=== PATIENT | female | born 1960 | race Caucasian/White ===

== ENCOUNTER 2017-06-21 08:05 | Outpatient (CLI) | payer BC | END 2017-06-21 08:06 | disposition home or self-care (01) | LOC: BICMAMMO 08:05 | PROVIDERS: ATTEND Family Medicine | DX: Z12.31 Encounter for screening mammogram for malignant neoplasm of breast (principal); Z80.3 Family history of malignant neoplasm of breast | CPT/HCPCS: 77063; 77067 ==

== ENCOUNTER 2018-06-29 07:50 | Outpatient (CLI) | payer BC ==
--- NOTE | 2018-06-29 08:49 | BD ---
DEXA BONE SCAN: HISTORY: Age-related osteoporosis. FINDINGS: DEXA bone scan is performed on a Hologic bone mineral density unit. Comparison is made to previous e xam from 12/15/2015. Lumbar Spine: BMD (g/cm2) L1 0.90 T-Score: -0.9 Z-Score: 0.2 L2 0.90 T-Score: -1.1 Z-Score: 0.1 L3 0.94 T-Score: -1.3 Z-Score: -0.1 L4 0.96 T-Score: -0.9 Z-Score: 0.4 L1-L4 0.93 T-Score: -1.1 Z-Score: 0.1 Left Hip: Femoral Neck: 0.76 T-Score: -0.8 Z-Score: 0.3 Total Femur: 0.97 T-Score: 0.3 Z-Score: 1.0 IMPRESSION: Findings compatible with normal bone mineral density. No significant increased risk of osteoporotic fracture is seen. POS: OFF
--- NOTE | 2018-06-29 09:44 | MMO ---
Bilateral MAMMO Bilat Screen [facility]. CLINICAL HISTORY: Patient is 58 years old and is seen for screening. The patient has the following family history of breast cancer: maternal grandmother and maternal aunt. The patient has no personal history of cancer. The patient has a history of left Excisional Biopsy in July, - benign. VIEWS: The views performed were: bilateral craniocaudal with tomosynthesis and bilateral mediolateral oblique with tomosynthesis. FILMS COMPARED: The present examination has been compared to prior imaging studies performed at [facility] on 06/21/2017, and at [facility] on 09/21/2012, 11/01/2013, 11/10/2014 and 12/15/2015. MAMMOGRAM FINDINGS: The breasts are heterogeneously dense, which could obscure a lesion on mammography. Benign calcifications are noted bilaterally. There are no suspicious masses, suspicious calcifications, or new areas of architectural distortion. IMPRESSION: THERE IS NO MAMMOGRAPHIC EVIDENCE OF MALIGNANCY. A ROUTINE FOLLOW-UP MAMMOGRAM IN 1 YEAR IS RECOMMENDED. THE RESULTS OF THIS EXAM WERE SENT TO THE PATIENT. ACR BI-RADS Category 2 - Benign finding MAMMOGRAPHY NOTE: 1. A negative mammogram report should not delay a biopsy if a dominant of clinically suspicious mass is present. 2. Approximately 10% to 15% of breast cancers are not detected by mammography. 3. Adenosis and dense breasts may obscure an underlying neoplasm.
== END 2018-06-29 07:51 | disposition home or self-care (01) ==
LOC: BICMAMMO 07:50
PROVIDERS: ATTEND Family Medicine
DX: Z12.31 Encounter for screening mammogram for malignant neoplasm of breast (principal); Z13.820 Encounter for screening for osteoporosis; Z80.3 Family history of malignant neoplasm of breast
CPT/HCPCS: 77063; 77067; 77080

== ENCOUNTER 2021-01-27 08:26 | Outpatient (CLI) | payer BC | END 2021-01-27 08:27 | disposition home or self-care (01) | LOC: BICMAMMO 08:26 | PROVIDERS: ATTEND Obstetrics & Gynecology | DX: Z12.31 Encounter for screening mammogram for malignant neoplasm of breast (principal); Z91.89 Other specified personal risk factors, not elsewhere classified; Z80.3 Family history of malignant neoplasm of breast | CPT/HCPCS: 77063; 77067 ==